=== PATIENT | male | born 1965 | race Caucasian/White ===

== ENCOUNTER 2018-07-13 11:46 | Emergency (ER) | payer BC ==
[2018-07-13] MEDS ORDERED: Lidocaine 1% 20 ML MDV INJECT ONE (13:05)
[2018-07-13] MEDS ORDERED: Diphtheria,Pertussis(Acell),Tetanus Vaccine 0.5 ML SDV IM ONE (13:10)
[2018-07-13] MEDS ORDERED: Bacitracin/Neomycin/Polymyxin B Oint 28.4 GM Tube TOP ONE (13:51)
[2018-07-13] MEDS ORDERED: Bacitracin Oint 1 GM U/D Packet TOP ONE (13:52)
--- NOTE | 2018-07-13 13:58 | EDM.PDOC ---
ED HPI GENERAL MEDICAL PROBLEM - General Chief Complaint: Laceration Stated Complaint: CUT ON LEFT FINGER Time Seen by Provider: 07/13/18 13:30 Source of Information: Reports: Patient History Limitations: Reports: No Limitations - History of Present Illness INITIAL COMMENTS - FREE TEXT/NARRATIVE: This gentleman was installing drywall been using a utility knife when the knife slipped and lacerated his left index finger. Last tetanus was many years ago. Left Finger-Index Pain Score (Numeric/FACES): 2 - Related Data Allergies Allergy/AdvReac Type Severity Reaction Status Date / Time No Known Allergies Allergy Verified 07/13/18 12:01 Home Meds: Home Meds NK [No Known Home Meds] 07/13/18 [History] Past Medical History HEENT History: Reports: None Dermatologic History: Reports: Other (See Below) - Past Surgical History Dermatological Surgical History: Reports: None Social & Family History - Tobacco Use Smoking Status *Q: Never Smoker Second Hand Smoke Exposure: No - Caffeine Use Caffeine Use: Reports: Coffee - Recreational Drug Use Recreational Drug Use: No ED ROS GENERAL - Review of Systems Review Of Systems: ROS reveals no pertinent complaints other than HPI. ED EXAM, SKIN/RASH Exam: See Below Exam Limited By: No Limitations General Appearance: Alert, No Apparent Distress Extremities: Other (There is a laceration to the left index finger the palmar surface over the PIP joint. Laceration is approximately 2.5 cm long. Wound is superficial and clean appearing. Neurovascular tendon all intact) Course - Vital Signs Last Recorded V/S: Last Vital Signs Temp 36.6 C 07/13/18 12:04 Pulse 75 07/13/18 12:04 Resp 16 07/13/18 12:04 BP 188/92 H 07/13/18 12:04 Pulse Ox 97 07/13/18 12:04 - Orders/Labs/Meds Orders: Active Orders 24 hr Category Date Time Status Vaccines to be Administered [RC] PER UNIT ROUTINE Care 07/13/18 13:10 Active Meds: Medications Discontinued Medications Generic Name Dose Route Start Last Admin Trade Name Freq PRN Reason Stop Dose Admin Bacitracin 1 dose 07/13/18 13:52 Bacitracin Oint 1 Gm TOP 07/13/18 13:53 ONETIME ONE Diphtheria/Tetanus/Acell Pertussis 0.5 ml 07/13/18 13:10 07/13/18 13:16 Adacel IM 07/13/18 13:11 0.5 ml .ONCE ONE Administration Lidocaine HCl 20 ml 07/13/18 13:05 07/13/18 13:11 Xylocaine 1% INJECT 07/13/18 13:06 20 ml ONETIME ONE Administration Neomycin/Polymyxin/Bacitracin 1 gm 07/13/18 13:51 Triple Antibiotic Oint TOP 07/13/18 13:52 ONETIME ONE - Re-Assessments/Exams Free Text/Narrative Re-Assessment/Exam: 07/13/18 13:55 Procedure: Laceration repair. The wound has been soaked in saline. It was anesthetized with approximately 3 mL of 1% plain lidocaine. The wound was then lavaged copiously with normal saline. It was then repaired with a running 4-0 nylon suture giving a good cosmetic repair. Bacitracin ointment followed by a sterile dressing were then applied. Wound care was discussed. He received a tetanus immunization tdap Departure - Departure Time of Disposition: 13:58 Disposition: Home, Self-Care 01 Condition: Fair Clinical Impression: Laceration of index finger of left hand without complication - Discharge Information Referrals: PCP,None [Primary Care Provider] - Additional Instructions: Remove the dressing in one or 2 days. Then wash everyday with soap and water, apply antibiotic ointment and keep covered with a sterile dressing. You should be able to work without any problems as long she keep a good dressing on it and keep it clean and dry by wearing gloves. See your doctor in 10 days for suture removal.. Your blood pressure was mildly elevated. It will need to be elevated at least 2 more times before you can make an actual diagnosis of hypertension. It would be a good idea to see your doctor but you can check it your self at home or at the pharmacy or health nurse or medic do it for you also. Hypertension his his serious illness that causes damage to your heart kidneys and other organs if it remains chronically elevated. It's a good idea to get a yearly physical too.
== END 2018-07-13 14:12 | disposition home or self-care (01) ==
LOC: JP.ED 11:46
DX: S61.211A Laceration without foreign body of left index finger without damage to nail, initial encounter (principal); W26.0XXA Contact with knife, initial encounter; Z23 Encounter for immunization
CPT/HCPCS: 12001; 90471; 90715; 99283; A9270

== ENCOUNTER 2023-02-24 19:33 | Emergency (ER) | payer BC ==
[2023-02-24] MEDS ORDERED: Lidocaine 1% with EPINEPHrine 1:100,000 50 ML MDV SUBCUT STA (19:58)
[2023-02-24] MEDS ORDERED: Bacitracin Oint 1 GM U/D Packet TOP ONE (20:41)
== END 2023-02-24 20:56 | disposition home or self-care (01) ==
LOC: JP.ED 19:33
DX: S80.852A Superficial foreign body, left lower leg, initial encounter (principal); I10 Essential (primary) hypertension; Z79.899 Other long term (current) drug therapy; W45.8XXA Other foreign body or object entering through skin, initial encounter
CPT/HCPCS: 10120; 99283